=== PATIENT | female | born 1975 | race Caucasian/White ===

== ENCOUNTER 2016-09-16 13:13 | Observation (INO) | payer OTHER ==
[~2016-09-16] VITALS: Ht 167.6 cm; Wt 86.2 kg
--- NOTE | ~2016-09-16 | HC ---
[facility] [place] [address] CONSULTATION Name: ADRIANALOUIE Room #: 416-P [facility] Prisclila Willis#: [id number] Admission: 09/16/16 Attend Phys: Anupam Lizarraga MD Discharge: 09/17/16 Date of : 71 Report #: [id number] THIS REPORT FOR: //name// CC: Sharif Lizarraga DATE OF SERVICE: 09/16/2016 HISTORY OF PRESENT ILLNESS: This is a 41-year-old extremely pleasant female patient for whom a consultation was requested by Emergency Room physician for the possibility of atypical migraine. The patient herself provided history and the history I get is that she has two types of symptoms for a long period of time. She has been diagnosed as vertigo. She has these episodes. It is a longstanding episode. It becomes worse with movements of the neck. It come spontaneously and then resolves spontaneously. It has been thought that they may be attributed to inner ear, but the diagnosis has never been confirmed. She also has migraine headache. Migraine headache has been present for a long period of time. The frequency of migraine headache has fluctuated. After the delivery of one of her sons, she did not have any headache but on other occasion they were very prominent. estimates that the headache may be happening once a month. Usually there is no relationship of dizziness and her headache. Headaches are typically around the left eye. She has no ophthalmological problem. In fact, she had a recent ophthalmology examination that was unremarkable. It spreads to the left side of the face where there is some paraesthesia present. Then, she becomes better. The symptoms today she had combined her left eye and left fascial symptom as well as vertigo. She got some medication, which looks like Benadryl and Compazine. When I saw her, the symptoms were resolving. She also may have had some ataxia when this happened. REVIEW OF SYSTEMS: Indicate that she has vertigo, she has what looks like migraine headaches. This is a longstanding process. The one episode she had today was severe and it was more severe than the previous one was. She does not think that her stress level is any different. She is not on any hormones. Her last child was 10-year ago and her serum test is negative. She is not a diabetic. Rest of the review of systems was mostly unremarkable. PAST MEDICAL HISTORY: Positive for headache, which looks like migraine headache and vertigo. FAMILY HISTORY: Unremarkable. SOCIAL HISTORY: She does not smoke or drink any alcohol. PHYSICAL EXAMINATION: Indicate she is alert, responsive, oriented, looks like her speech, concentration, fund of knowledge and memory are at her baseline. [address] [address] CONSULTATION Name: LOUIE WRIGHT Room #: 416-P ALEX Willis#: [id number] Admission: 09/16/16 Attend Phys: Anupam Lizarraga MD Discharge: 09/17/16 Date of : 71 Report #: [id number] Cranial nerve examination 2-12 was carried out and does not appear to be showing any abnormality. There is no papilledema. Strength, sensation and reflexes look symmetrical. Reflexes were slightly diminished, but that may be because of positional and may have to be rechecked some time. She does not have any meningeal sign. She is otherwise a well-developed individual who does not have any dysmorphic features of eyes, ears and face. Her blood pressure is 136/76, respirations 18, pulse is 70, and temperature is 98.3. LABORATORY DATA: Indicate that white count is 10.1, platelet count is trace high at 450. MCH is a trace low. PT/PTT is normal. I reviewed the CT angiogram film and I discussed with the radiologist. It really shows no abnormality. She had an anatomical variant of the vertebral artery, but otherwise nothing like dissection etc is present. There is no enhancing lesion present either. IMPRESSION: 1. 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 2. Vertigo or dizziness she has is most likely secondary to ENT pathology. 3. Her platelet count is trace high and we may have to repeat that. RECOMMENDATION: I discussed the situation with the patient and I think that it would be desirable to do some further workup in this patient. I think it will be desirable to do an MRI of the brain. Since she already got a contrast today, I will just do a without contrast MRI and if there is a need for it, we can do with contrast later on, especially if there is a need to do an ____. She should see an ENT physician as an outpatient if the workup is negative for which there is a good chance. I discussed with her that migraines slightly increase her chances of having a stroke. Therefore, she should avoid any other factors, which can contribute to her stroke. I will do some workup in that regard including a sed rate, homocysteine cardiolipin antibody. When we are doing an MRI, I will also go ahead and do an MRA to have a second look at the vertebral artery, which looks tortuous to make sure there is no abnormality there. If her migraines are frequent enough, we can put her on Topamax, but if it is only once a month, I think this symptomatic treatment should be adequate. Because of increased platelet, it might be desirable to take an aspirin and especially if she has atypical migraine. However, the patient needs to be on some effective contraception if she wants to do it because of the aspirin's effect on fetus in the first trimester. I discussed all of it with the patient. I will await the MRI. I will also suggest getting an echocardiogram to make sure she does not have a patent foramen ovale because that incidence of patent foramen ovale is higher in migraine patient than non-migraine patient, although the management of that is also controversial. I did discuss this plan with her, but will be happy to discuss further plan with this patient once this workup is available. [address] [address] CONSULTATION Name: LOUIE WRIGHT Room #: 416-P [facility] Priscilla Willis#: [id number] Admission: 09/16/16 Attend Phys: Anupam Lizarraga MD Discharge: 09/17/16 Date of : 71 Report #: [id number] Thank you very much for this referral and if you have any questions, please feel free to contact me. By: [id number] Rojelio Mcdonald MD /nt
--- NOTE | ~2016-09-16 | HC ---
[facility] [place] [address] CONSULTATION Name: LOUIE WRIGHT Room #: 416-P [facility] Priscilla Willis#: [id number] Admission: 09/16/16 Attend Phys: Anupam Lizarraga MD Discharge: 09/17/16 Date of : 71 Report #: [id number] THIS REPORT FOR: //name// CC: Sharif Lizarraga MD DATE OF SERVICE: 09/17/2016 HISTORY OF PRESENT ILLNESS: This is a 41-year-old female patient who was followed up by me today. This patient had presented with paraesthesias of the face and she had some difficulty with ambulation and feeling dizzy. The patient's symptom had started on the day of admission. It has progressively improved. She still has some minor symptoms on the left side of the face, but overall other symptoms are much improved. She does have a history of migraine in the past. She had a pretty extensive evaluation during the hospitalization. Neurologically, we went ahead and did an MRI of the brain and also I did an MRA because her symptoms were on the left side and there was some anatomical variation and tortuosity of the left vertebral on the left side. That did not show any definite abnormality. I had a long talk with this patient and we discussed multiple aspects. I discussed with her that her neurological symptoms are most likely secondary to what have been variously described as atypical migraine, hemiplegic migraine. We discussed treatment options in this regard. First thing she needs to do is to make sure she does not have any other vascular risk factors, which can predispose her for stroke. Migraine does increase her chances of having a stroke slightly, but she needs to make sure no other vascular risk factors are there or they minimized as much as possible. Her cholesterol is only 134, but her LDL is 83 and HDL is somewhat low at 39. She is not on any hormone. I believe it would be desirable to take an aspirin daily in this patient because of these symptoms. We did talk about doing exercise on a regular basis, avoiding preserved and processed food. I did talk to her that if she goes on oxygen she must make sure she should be on some effective contraception because aspirin can affect the fetus in the first trimester. If she cannot be sure of that, then she should not take aspirin, because aspirin has questionable benefit. She also must take folic acid 0.8 mg p.o. daily. I talked to her and then I gave a call to Dr. Lizarraga and I told her that she needs systemic workup, which I will defer to them. She does have some problems including the fact that when she came her platelet count was somewhat high. She does have slight drop in hemoglobin, but she got some fluid. Her calcium is somewhat low. Her thyroid indicates that the TSH is high, but I do not think her T4. All these questions need to be addressed and I will defer to primary care and admitting physician those questions in that regard. They also need to [address] [address] CONSULTATION Name: LOUIE WRIGHT Room #: 416-P ALEX Willis#: [id number] Admission: 09/16/16 Attend Phys: Anupam Lizarraag MD Discharge: 09/17/16 Date of : 71 Report #: [id number] make sure there is no cardiac etiology for her dizziness. I had talked to her yesterday that her vertigo, which she has for a long period of time is most likely secondary to ENT pathology and she should consider an evaluation by ENT. I noticed that an echocardiogram was done, but I am not sure it was done as a bubble study because the purpose was to rule out ventricular septal defect or patent foramen ovale and they will be difficult to rule with that and she may need that as a supplement as an outpatient sometime. She should follow up with Dr. Block and she can follow up with us also as an outpatient and should come to the Emergency Room in case she has any more stroke-like symptoms. By: [id number] Rojelio Mcdonald MD /ba
--- NOTE | ~2016-09-16 | EKG ---
[address] [place] [address] ELECTROCARDIOGRAM REPORT Name: LOUIE WRIGHT Room #: 416-P [facility]#: [id number] Admission: 09/16/16 Attend Phys: Anupam Lizarraga MD Discharge: Date of : 71 Report #: [id number] THIS REPORT FOR: //name// [facility] ED Test Date: 2016-09-16 Test Time: 13:19:07 Pat Name: LOUIE WRIGHT Department: Room: [facility] Gender: F Cover Stripper: Jazzy COYNE : 1975 Requested By: Marco A Mills Order Number: [id number] MD: Todd Varma Measurements Intervals [place] Rate: 70 P: 57 DE: 146 QRS: 41 QRSD: 94 T: 27 QT: 378 QTc: 408 Interpretive Statements Sinus rhythm Normal tracing No previous ECG available for comparison Electronically Signed On 09-17-2016 8:24:07 CDT by Todd Varma [email or web address] <ELECTRONICALLY SIGNED> By: Todd Varma MD, [facility] 09/17/16 0824 1319 1319 Todd Varma MD, FACC /EPI
--- NOTE | ~2016-09-16 | H ---
[facility] [place] [address] HISTORY AND PHYSICAL Name: LOUIE WRIGHT Room #: 416-P [facility] M.RCarmina#: [id number] Admission: 09/16/16 Attend Phys: Anupam Lizarraga MD Discharge: Date of : 71 Report #: [id number] THIS REPORT FOR: //name// CC: Sharif Lizarraga DATE OF SERVICE: 09/16/2016 CHIEF COMPLAINT: Headache. HISTORY OF PRESENT ILLNESS: The patient is a 41-year-old female with history of migraine headache who presented to the Emergency Room complaining of left-sided frontal headache associated with numbness on the left eye, photophobia, vertigo, near syncope. The patient started experiencing these symptoms at 9 in the morning. She took two of her tramadol and meclizine without much relief. Apparently, she was walking, felt like she was having lightheadedness, felt like she was going to pass out. She was brought into the Emergency Room for further evaluation. She underwent a CT of the brain which showed no acute abnormality. She also had a CTA of the neck and brain, which showed no acute abnormality in the blood vessels. There is an 8 mm thyroid nodule. The patient was given Compazine in the Emergency Room with partial good relief. The patient says the dizziness is better too. She denies any focal numbness or weakness of the extremity. The patient was evaluated by Dr. Mcdonald in the Emergency Room and was recommended MRI and MRA of the brain. Her symptoms were also associated with some aphasia feeling like her tongue was very thick. She also had some mild nausea, but no vomiting. PAST MEDICAL HISTORY: Significant for , arthroscopic right knee. No hypertension, no diabetes. She has history of migraine headache, history of vertigo. ALLERGIES: She has allergies to CODEINE AND HYDROCODONE. Please look at the nursing documentation for the reaction. HOME MEDICATIONS: Includes tramadol, meclizine p.r.n. ibuprofen. SOCIAL HISTORY: No smoking or alcohol abuse or illicit drug abuse. FAMILY HISTORY: Significant for hypertension. REVIEW OF SYSTEMS: CONSTITUTIONAL: No recent weight loss, weight gain. No fever or chills. EYES: She did have photophobia earlier with the headache. HEENT: She also had some numbness and tingling around the mouth. THROAT: Denies any sore throat. [facility] [address] [place] [address] HISTORY AND PHYSICAL Name: LOUIE WRIGHT Room #: 416-P [facility] Priscilla Willis#: [id number] Admission: 09/16/16 Attend Phys: Anupam Lizarraga MD Discharge: Date of : 71 Report #: [id number] CARDIOVASCULAR: No chest pain, dizziness at present. No palpitations. RESPIRATORY: No cough, expectoration. GASTROINTESTINAL: She did have some nausea this morning. GENITOURINARY: No dysuria or hematuria. PSYCHIATRIC: Denies any focal numbness or weakness of the extremity. The 12-point review of system is negative other than the positive and the negative dictated in the history of present illness and the review of system. PHYSICAL EXAMINATION: VITAL SIGNS: Reveal blood pressure 136/76, heart rate of 70 per minute, afebrile. GENERAL: The patient is awake and alert, not in acute respiratory distress. EYES: Pupils equal, reactive to light, nonicteric, conjunctivae. Throat appears normal. NECK: Supple, no JVD, no bruit, no lymphadenopathy. CARDIOVASCULAR SYSTEM: S1, S2, negative S3, no murmur. CHEST: Bilateral air entry present. Clear on auscultation. ABDOMEN: Soft, bowel sounds present, no mass, no organomegaly, no tenderness. PERIPHERY: No pedal edema. No calf tenderness. Dorsalis pedis 1+. NEUROLOGICAL: No gross motor or sensory deficit. Pupils equal, reactive to light. Extraocular movements intact. LABORATORY DATA: Reviewed. White count is 10.1, hemoglobin is 12, MCV 74, platelet is 450. PT/INR within normal limit. Chemistry showed a BUN and creatinine of 14 and 0.8. The glucose is 101, test was negative. CT of the brain showed no acute abnormality. CTA showed a 8 mm thyroid nodule. EKG showed normal sinus rhythm, no acute abnormality. ASSESSMENT AND PLAN: 1. Headache, most likely migraine. The patient has been evaluated by neurologist. We will continue with Ultram and meclizine p.r.n. The patient is scheduled for MRI/MRA of the brain. 2. Thyroid nodule. We will check her TSH level and also thyroid ultrasound. 3. Deep venous thrombosis prophylaxis. She will be placed on SCD on the leg for DVT prophylaxis. Treatment plan has been explained to the patient in detail. <ELECTRONICALLY SIGNED> By: Anupam Lizarraga MD 09/17/16 [phone] Anupam Lizarraga MD /nt
--- NOTE | ~2016-09-16 | 2DMMODE ---
[facility] [address] [place] [address] 2 D/M-MODE ECHOCARDIOGRAM Name: ADRIANALOUIE Room #: 416-P ADM IN M.R.#: [id number] Admission: 09/16/16 Attend Phys: Leslie Sevilla Discharge: Date of : 71 Date of Service: 09/17/16 1333 Report #: [id number] THIS REPORT FOR: //name// APPROVED REPORT Study performed: 09/17/2016 12:12:20 EXAM: Comprehensive 2D, Doppler, and color-flow Echocardiogram Patient Location: Echo lab Room #: 416 Blood Pressure: 125/62 mmHg HR: 67 bpm Other Information Study Quality: Good Indications Palpitations 2D Dimensions RVDd: 35.09 mm LVEF(%): 55.39 (>50%) IVSd: 11.48 (7-11mm) LVOT Diam: 18.13 (18-24mm) LVDd: 46.84 mm PWd: 10.42 (7-11mm) Ascending Ao: 29.54 (22-36mm) LVDs: 33.36 (25-40mm) Aortic Root: 33.77 mm IVC: 5.00 mm Lunsford's LVEF: 55.39 % Volumes Left Atrial Volume (Systole) Single Plane 4CH: 29.24 mL Single Plane 2CH: 34.64 mL LA ESV Index: 18.00 mL/m2 Aortic Valve AoV Peak Ralph.: 1.39 m/s AO Peak Gr.: 7.69 mmHg LVOT Max P.38 mmHg LVOT Max V: 1.05 m/s Mitral Valve E/A Ratio: 1.3 MV Decel. Time: 275.39 ms MV E Max Ralph.: 0.88 m/s [facility] [address] [place] [address] 2 D/M-MODE ECHOCARDIOGRAM Name: LOUIE WRIGHT Room #: 416-[facility] ..#: [id number] Admission: 09/16/16 Attend Phys: Leslie Sevilla Discharge: Date of : 71 Date of Service: 09/17/16 1333 Report #: [id number] MV A Ralph.: 0.69 m/s MV PHT: 79.86 ms Pulmonary Valve PV Peak Ralph.: 0.81 m/s PV Peak Gr.: 2.62 mmHg Pulmonary Vein P Vein S: 51.8 m/s P Vein D: 45.7 m/s P Vein A Dur.: 25.6 m/s Tricuspid Valve TR Peak Ralph.: 2.05 m/s RAP Estimate: 5.00 mmHg TR Peak Gr.: 16.81 mmHg Left Ventricle The left ventricle is normal size. There is normal LV segmental wall motion. There is normal left ventricular wall thickness. The left ventricular systolic function is normal. The left ventricular ejection fraction is within the normal range. LVEF is 55-60%. The left ventricular diastolic function is normal. Right Ventricle The right ventricle is normal size. The right ventricular systolic function is normal. Atria The left atrium size is normal. Interatrial septum is intact without evidence of ASD or PFO. The right atrium size is normal. Aortic Valve The aortic valve is normal in structure. No aortic regurgitation is present. There is no aortic valvular stenosis. Mitral Valve The mitral valve is normal in structure. There is no mitral valve regurgitation noted. No evidence of mitral valve stenosis. Tricuspid Valve The tricuspid valve is normal in structure. There is trace tricuspid regurgitation. The right atrial pressure is estimated at 5 mmHg. There is no pulmonary hypertension. The estimated PAP was 22 mmHg. Pulmonic Valve The pulmonary valve is normal in structure. There is no pulmonic valvular regurgitation. [address] [address] 2 D/M-MODE ECHOCARDIOGRAM Name: LOUIE WRIGHT Room #: 416-P [facility] IN [facility].#: [id number] Admission: 09/16/16 Attend Phys: Leslie Sevilla Discharge: Date of : 71 Date of Service: 09/17/16 1333 Report #: [id number] Great Vessels The aortic root is normal in size. IVC is normal in size and collapses >50% with inspiration. Pericardium There is no pericardial effusion. <Conclusion> The left ventricle is normal size. LVEF is 55-60%. The aortic valve is normal in structure. The mitral valve is normal in structure. The tricuspid valve is normal in structure. There is trace tricuspid regurgitation. The right atrial pressure is estimated at 5 mmHg. There is no pulmonary hypertension. The estimated PAP was 22 mmHg. The pulmonary valve is normal in structure. There is no pulmonic valvular regurgitation. <ELECTRONICALLY SIGNED> By: Mateo Rodriguez MD 09/17/16 1333 1333 133 Mateo Rodriguez MD /INF
[~2016-09-16 13:13] MED LIST: ADVIL200 M3 PO; BENADRYL25 MG PO; IBUPROFEN 600600 M1 PO; ONDANSETRON HCL4 M2 PO; ULTRAM 50MG TAB50 MG PO
[2016-09-16 13:14] VITALS: BP 153/87
[2016-09-16 13:45] LABS: HEMATOCRIT 37.5 % (37.0-47.0); MCH 23.9 pg (26.0-34.0); MCHC 31.9 g/dL (28.0-37.0); MCV 74.9 fL (80.0-100.0); WBC 10.1 thou/uL (4.0-11.0)
[2016-09-16 13:49] LABS: ANION GAP 6 mmol/L (7-16); BUN 14 mg/dL (7-18); CALCIUM 8.5 mg/dL (8.5-10.1); CHLORIDE 107 mmol/L (98-107); CO2 25 mmol/L (21-32); CREATININE 0.8 mg/dL (0.6-1.0); GLUCOSE 101 mg/dL (74-106); SODIUM 138 mmol/L (136-145)
[2016-09-16 13:56] LABS: APTT 25.3 Seconds (24.5-32.8); PROTIME 10.6 Seconds (9.3-11.4); TROPONIN-I < 0.04 ng/mL (<0.04-0.07)
[2016-09-16 18:05] VITALS: BP 136/76
[2016-09-16 19:55] VITALS: BP 118/68
[2016-09-17 00:50] VITALS: BP 101/60
[2016-09-17 04:30] VITALS: BP 100/61
[2016-09-17 05:47] LABS: ABSOLUTE NEUTROPHILS 4.9 thou/uL (1.4-8.2); BASOPHILS 1.3 % (0.0-2.0); EOSINOPHILS 4.8 % (0.0-3.0); HEMATOCRIT 34.4 % (37.0-47.0); MCH 23.9 pg (26.0-34.0); MCHC 31.9 g/dL (28.0-37.0); MCV 74.9 fL (80.0-100.0); MONOCYTES 7.7 % (1.0-8.0); POLYS 54.2 % (36.0-66.0); RBC 4.58 mil/uL (4.20-5.00); RDW 18.5 % (10.5-14.5); WBC 9.1 thou/uL (4.0-11.0)
[2016-09-17 05:53] LABS: PLATELET COUNT 371 thou/uL (150-400)
[2016-09-17 05:54] LABS: MANUAL DIFF NO
[2016-09-17 05:59] LABS: ANION GAP 8 mmol/L (7-16); BUN 14 mg/dL (7-18); CALCIUM 7.8 mg/dL (8.5-10.1); CHLORIDE 109 mmol/L (98-107); CHOLESTEROL 134 mg/dL (<200); CO2 23 mmol/L (21-32); CREATININE 0.9 mg/dL (0.6-1.0); GLUCOSE 95 mg/dL (74-106); HDL CHOLESTEROL 39 mg/dL (>40); LDL CHOLESTEROL 83 mg/dL (<100); MAGNESIUM 1.8 mg/dL (1.8-2.4); SODIUM 140 mmol/L (136-145); TC:HDL 3.4 Ratio (Not establshd); TRIGLYCERIDE 60 mg/dL (<150); VLDL 12 mg/dL (<40)
[2016-09-17 06:06] LABS: SERUM ASSESSMENT Clear
[2016-09-17 09:23] VITALS: BP 125/62
[2016-09-17 13:58] VITALS: BP 121/67; BP 124/68
[2016-09-17 13:59] VITALS: BP 120/70
[2016-09-17] MEDS ORDERED: ANTIVERT25 MG PO (14:06)
[2016-09-17] MEDS ORDERED: LEVOTHYROXINE0.05 MG PO (14:06)
[2016-09-17 14:56] VITALS: BP 120/70
== END 2016-09-17 16:05 | disposition home or self-care (01) ==
LOC: ER 13:13 → EROBS 17:08 → 4N 17:08
PROVIDERS: Emergency Medicine; Internal Medicine; Psychiatry & Neurology Neuromuscular Medicine
DX: G43.909 Migraine, unspecified, not intractable, without status migrainosus (principal); E04.1 Nontoxic single thyroid nodule; E03.9 Hypothyroidism, unspecified; E04.2 Nontoxic multinodular goiter; R42 Dizziness and giddiness; Z79.899 Other long term (current) drug therapy

== ENCOUNTER → 2016-09-28 | Outpatient (CLI) | payer OTHER ==
[~2016-09-28] MED LIST changes: +ANTIVERT25 MG PO; +LEVOTHYROXINE0.05 MG PO
== END ==
LOC: RAD 11:12
DX: Z12.31 Encounter for screening mammogram for malignant neoplasm of breast (principal)

== ENCOUNTER → 2016-10-20 | Outpatient (CLI) | payer OTHER | LOC: LABMALL 09:48 | DX: Z00.00 Encounter for general adult medical examination without abnormal findings (principal) ==

== ENCOUNTER → 2017-02-28 | Outpatient (CLI) | payer OTHER | LOC: ULTRA 14:19 | DX: E04.2 Nontoxic multinodular goiter (principal) ==

== ENCOUNTER → 2019-03-22 | Outpatient (CLI) | payer OTHER | LOC: ULTRA 09:06 | DX: E04.2 Nontoxic multinodular goiter (principal) ==

== ENCOUNTER → 2020-06-19 | Outpatient (CLI) | payer OTHER | LOC: ULTRA 16:22 | PROVIDERS: ATTEND Internal Medicine Endocrinology, Diabetes & Metabolism | DX: E04.2 Nontoxic multinodular goiter (principal) ==